=== PATIENT | female | born 1990 | race Caucasian/White ===

== ENCOUNTER → 2021-08-03 12:57 | Outpatient (BNVA) | payer MEDICARE, MEDICAID, SELFPAY | PROVIDERS: Visit Provider Internal Medicine | DX: R63.5 Abnormal weight gain (principal); R10.9 Unspecified abdominal pain; E28.2 Polycystic ovarian syndrome; L68.0 Hirsutism; Z68.25 Body mass index [BMI] 25.0-25.9, adult | CPT/HCPCS: 99204 ==

== ENCOUNTER 2022-06-28 10:04 | Outpatient (CLI) | payer MEDICARE, MEDICAID, SELFPAY ==
[2022-06-28 11:32] LABS: Free T4 Free Thyroxine 1.01 ng/dL (0.82-1.77); Thyroid Stimulating Hormone 0.65 uIU/mL (0.27-4.20)
[2022-06-29 16:56] LABS: Thyroglobulin AB <1 IU/mL (< or = 1); Thyroid Peroxidase Antobodies 1 IU/mL (<9)
[2022-06-30 00:12] LABS: T3 Total 113 ng/dL (76-181)
== END 2022-06-28 10:05 | disposition home or self-care (01) ==
LOC: LAB 10:05
PROVIDERS: PCP Family Medicine; Visit Provider Internal Medicine
DX: F41.0 Panic disorder [episodic paroxysmal anxiety] (principal); R63.5 Abnormal weight gain; R79.89 Other specified abnormal findings of blood chemistry; L68.0 Hirsutism; R10.9 Unspecified abdominal pain; E28.2 Polycystic ovarian syndrome; Z68.25 Body mass index [BMI] 25.0-25.9, adult
CPT/HCPCS: 36415; 83516; 84439; 84443; 84480; 86376; 86800; 99214

== ENCOUNTER → 2022-10-02 11:36 | Outpatient (BNVA) | payer MEDICARE, MEDICAID, SELFPAY | PROVIDERS: PCP Family Medicine; Visit Provider Psychiatry & Neurology Psychiatry | DX: Z79.899 Other long term (current) drug therapy (principal) | CPT/HCPCS: 80053; 80061; 83036; 85025 ==